=== PATIENT | male | born 1995 | race Caucasian/White ===

== ENCOUNTER 2017-08-27 00:20 | Emergency (ER) | payer SELFPAY ==
[2017-08-27] MEDS ORDERED: ZOFRAN IV ONE (00:36)
[2017-08-27] MEDS ORDERED: NACL 0.9% 1000 ML 1,000 ML IV ONE (00:36)
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
[2017-08-27] MEDS ORDERED: BOOSTRIX IM ONE (00:49)
[2017-08-27] MEDS ORDERED: MORPHINE IV ONE ×2 (00:49→02:43)
[2017-08-27 01:06] LABS: Basophils % (Auto) 0.5 % (0.0-1.8); Eosinophils # (Auto) 0.1 K/mm3 (0.0-0.4); Eosinophils % (Auto) 1.1 % (0.0-4.3); Hematocrit 42.1 % (35.5-45.6); Hemoglobin 14.2 gm/dl (11.8-15.2); Lymphocytes # (Auto) 3.2 K/mm3 (1.2-5.4); Lymphocytes % (Auto) 32.8 % (13.4-35.0); Mean Corpuscular HGB Conc 34 % (32-34); Mean Corpuscular Hemoglobin 30 pg (28-32); Mean Corpuscular Volume 88 fl (84-94); Monocytes # (Auto) 0.5 K/mm3 (0.0-0.8); Monocytes % (Auto) 5.1 % (0.0-7.3); Platelet Count 295 K/mm3 (140-440); Red Blood Count 4.77 M/mm3 (3.65-5.03); Red Cell Distribution Width 13.5 % (13.2-15.2)
[2017-08-27 01:19] LABS: BUN/Creatinine Ratio 17; Blood Urea Nitrogen 12 mg/dL (9-20); Calcium 8.7 mg/dL (8.4-10.2); Hemolysis Index 4
[2017-08-27] MEDS ORDERED: XYLOCAINE 1%/ EPI 1:100,000 INFILTRATI ONE (01:25)
[2017-08-27] MEDS ORDERED: NACL 0.9% IR ONE ×2 (01:25→03:48)
[2017-08-27] MEDS ORDERED: XYLOCAINE 2%/ EPI 1:200,000 INFILTRATI ONE ×2 (01:28→03:48)
[2017-08-27 02:41] VITALS: BP 137/82
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
[2017-08-27] MEDS ORDERED: ZOSYN/NS 4.5GM/100ML 4.5 GM/100 ML VIAL IV ONE (03:00)
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
== END 2017-08-27 03:15 | disposition other institution (70) ==
LOC: ED 00:20
DX: S31.010A Laceration without foreign body of lower back and pelvis without penetration into retroperitoneum, initial encounter (principal); S69.91XA Unspecified injury of right wrist, hand and finger(s), initial encounter; F12.10 Cannabis abuse, uncomplicated; Y04.8XXA Assault by other bodily force, initial encounter; Y93.89 Activity, other specified; Y92.89 Other specified places as the place of occurrence of the external cause; Y99.8 Other external cause status
CPT/HCPCS: 12032; 36415; 73120; 74177; 80048; 85025; 90471; 90715; 96365; 96375; 96376; 99291; J2270; J2405; J2543; J7030; Q9967; 96361